=== PATIENT | female | born 1960 | race Caucasian/White ===

== ENCOUNTER 2024-04-01 16:18 | Emergency (ER) | payer OTHER, SELFPAY ==
--- NOTE | 2024-04-01 | ECG_ITS ---
Test Reason : CP Blood Pressure : / mmHG Vent. Rate : 073 BPM Atrial Rate : 073 BPM P-R Int : 146 ms QRS Dur : 098 ms QT Int : 408 ms P-R-T Axes : 058 -17 069 degrees QTc Int : 449 ms Normal sinus rhythm Minimal voltage criteria for LVH, may be normal variant ( [place] product ) Borderline ECG No previous ECGs available Referred By: Generic ED Physician Electronically Signed By:DEBORAH FIGUEROA
[2024-04-01 16:22] VITALS: BP 183/69; PULSE 79; RESP 16; TEMP 36.4; O2SAT 97; BMI 41.3
--- NOTE | 2024-04-01 16:44 | ED_ITS ---
HPI - General Adult General Chief complaint: General Medical Stated complaint: high blood pressure/visiting and forgot medication Time Seen by Provider: 04/01/24 22:04 Source: patient, family, RN notes reviewed and parts interpreter Mode of arrival: ambulatory Limitations: language barrier History of Present Illness ED Provider: Ziyad HPI narrative: 64F presents with chief complaint of I forgot my medication . Patient states she is visiting from [facility] and forgot her blood pressure medication. She states she takes either 25mg or 50mg of metoprolol once daily. She has not taken her medication since Wednesday. Denies headache, dizziness, vision changes, chest pain, dyspnea. Related Data Previous Rx's ?Medication ?Instructions ?Recorded metoprolol succinate 25 mg 25 mg PO DAILY #28 tabs 04/01/24 tablet,extended release 24 hr Allergies Allergy/AdvReac Type Severity Reaction Status Date / Time No Known Allergies Allergy Verified 04/01/24 16:24 Review of Systems 2 Constitutional: Constitutional: Denies headache(s) Eyes: Eyes: Denies change in vision, Denies loss of vision and Denies other visual disturbances ENT: Denies dizziness and Denies headache(s) Cardiovascular: Cardiovascular: Denies chest pain and Denies dyspnea Respiratory: Respiratory: Denies dyspnea Neurologic: Denies dizziness, Denies headache(s), Denies loss of vision and Denies Other visual disturbances PMF Social History Social History Smoked in Last 30 Days: No Use of substances other than those prescribed or required for medical reasons: No Advance Directives: No Advance Directives Information Provided: No Patient : No Physical Exam ED Vital Signs: Vital Signs - 24 hr 04/01/24 16:22 04/01/24 18:19 04/01/24 19:19 Temperature 97.5 F 97.8 F 98.4 F Pulse Rate 79 74 72 Respiratory Rate 16 15 16 Blood Pressure 183/69 H 202/77 H 162/73 H Pulse Oximetry 97 97 97 Oxygen Delivery Method Room Air Room Air Room Air 04/01/24 21:38 04/01/24 22:48 04/01/24 22:51 Temperature 98.1 F 97.9 F Pulse Rate 75 74 Respiratory Rate 16 18 Blood Pressure 161/62 H 163/68 H 163/68 H Pulse Oximetry 98 98 Oxygen Delivery Method Room Air BMI result Body Mass Index 41.3 Const General: healthy appearing, comfortable, no acute distress, alert and awake Nutritional Appearance: well nourished Orientation/consciousness: patient oriented x3 HENMT Head: Yes normocephalic and Yes atraumatic Eyes Eyelids: Yes eyelids normal Conjunctivae: conjunctivae normal Sclerae: sclerae normal Corneas: corneas normal Resp Effort & Inspection: normal respiratory effort, able to speak in complete sentences, no audible wheezes and not labored Cardio Rate: regular rate Rhythm: regular rhythm Neuro General: patient oriented x3 Cognition (Neuro): normal cognition Extrem Other: Moving all extremities well without any obvious deformities Course Course Course Narrative: RME performed by Angeles Turpin PA-C. Patient is a 64 year old assigned female at presenting to the emergency department with possible high blood pressure. Patient states she is visiting the area and forgot her blood pressure medication. Patient states that she has no idea what medication she takes or the dose. Detailed physical exam and review of systems are deferred to the primary school teacher. Patient placed back in the waiting room pending room availability. Medications Administered Discontinued Medications Generic Name Dose Route Start Last Admin Trade Name Freq PRN Reason Stop Dose Admin Metoprolol Tartrate 50 mg 04/01/24 22:34 04/01/24 22:48 Metoprolol Tartrate 50 Mg Tablet PO 04/01/24 22:35 50 mg ONCE ONE Administration Protocol Medical Decision Making Medical Decision Making [facility] Narrative: 64-year-old female with past medical history significant for hypertension presents for evaluation of hypertension. Her blood pressure was as high as 202/77. This improved without intervention. She is asymptomatic currently. Labs show no concerning abnormalities. We will give a dose of the metoprolol and prescribed a short course for her until she may follow up with her outpatient providers Differential Diagnosis Differential Diagnoses: The differential diagnosis associated with the presentation includes Hypertension Medication noncompliance Hypertensive urgency Asymptomatic hypertension Lab Data [facility] Lab Attestation statement: I reviewed the patient's lab results. No leukocytosis. The patient has a mild normocytic anemia. Normal platelet count. No left shift electrolytes within normal limits with the exception of a slightly elevated calcium to 11.5.. Random glucose is 126. No evidence of DKA. The patient's 04/01/24 17:03 04/01/24 17:03 Labs: Lab Results 04/01/24 Range/Units 17:03 WBC 8.0 (4.8-10.8) X10*3/uL RBC 3.94 L (4.20-5.50) X10*6/uL Hgb 11.1 L (12.0-16.0) g/dl Hct 34.5 L (37.0-47.0) % MCV 87.6 (80.0-98.0) fL MCH 28.2 (27.0-33.0) pg MCHC 32.2 (31.0-35.0) g/dl RDW 14.2 (11.0-16.0) % Plt Count 356 (160-400) X10*3/uL MPV 9.1 L (9.4-12.3) fL Immature Gran % (Auto) 0.3 (0.0-0.4) % Neut % (Auto) 41.3 L (45-73) % Lymph % (Auto) 45.2 H (20-40) % [place] % (Auto) 9.3 (2-11) % Eos % (Auto) 3.3 (0-4) % Baso % (Auto) 0.6 (0-2) % Lymph # (Auto) 3.6 (1.2-4.9) X10*3/uL [place] # (Auto) 0.7 (0.1-1.2) X10*3/uL Eos # (Auto) 0.3 (0.0-0.4) X10*3/uL Baso # (Auto) 0.1 (0.0-0.2) X10*3/uL Abs Immat Gran (auto) 0.02 (0.00-0.03) X10*3/uL Absolute Neuts (auto) 3.3 (2.0-8.3) x10*3/uL Absolute Nucleated RBC 0.000 (0.0-0.012) X10*3/uL Nucleated RBC % (auto) 0.0 (0.0-0.2) /100WBC Sodium 140 (135-145) mmol/L Potassium 3.9 (3.3-5.1) mmol/L Chloride 108 (96-108) mmol/L Carbon Dioxide 25 (22-29) mmol/L Anion Gap 11 L (12-20) BUN 16 (9-16) mg/dL Creatinine 0.72 (0.5-1.4) mg/dL Estim Creat Clear Calc 59.2 Estimated GFR > 60 Random Glucose 126 H (60-115) mg/dL Calcium 11.5 H (8.4-10.2) mg/dL Total Bilirubin 0.1 (0.0-1.0) mg/dL AST 15 (5-31) U/L ALT 7 (0-31) U/L Alkaline Phosphatase 137 H (39-117) U/L Total Protein 7.4 (6.5-8.0) g/dL Albumin 4.3 (3.5-5.0) g/dL Discharge Plan Discharge Clinical Impression: Hypertension Patient Disposition: Home, Self-Care Instructions: Chronic Hypertension (ED) Additional Instructions: Your workup in the ER today was reassuring. It is important to take your medication as prescribed. I prescribed metoprolol 25 mg I would call your doctor's office tomorrow for your pharmacy where you got it filled and if you are supposed take 50mg, then take 2 pills at a time Prescriptions: New metoprolol succinate 25 mg tablet extended release 24 hr 25 mg PO DAILY Qty: 28 0RF Interventions: ED Discharge Assessment Last Done: 04/01/24 22:51 Discharge Date/Time: 04/01/24 22:52 Print Language: Sammar[place]
[2024-04-01 17:06] LABS: MANUAL DIFF FLAG NO
[2024-04-01 17:11] LABS: Basophils Absolute Auto 0.1 X10*3/uL (0.0-0.2); Basophils Percent Auto 0.6 % (0-2); Eosinophils Absolute Auto 0.3 X10*3/uL (0.0-0.4); Eosinophils Percent Auto 3.3 % (0-4); Hematocrit 34.5 % (37.0-47.0); Hemoglobin 11.1 g/dl (12.0-16.0); Imm Gran Abs Auto 0.02 X10*3/uL (0.00-0.03); Imm Gran Pct Auto 0.3 % (0.0-0.4); Lymphocytes Absolute Auto 3.6 X10*3/uL (1.2-4.9); Lymphocytes Percent Auto 45.2 % (20-40); Mean Corpuscular HGB Conc 32.2 g/dl (31.0-35.0); Mean Corpuscular Hemoglobin 28.2 pg (27.0-33.0); Mean Corpuscular Volume 87.6 fL (80.0-98.0); Mean Platelet Volume 9.1 fL (9.4-12.3); Monocytes Absolute Auto 0.7 X10*3/uL (0.1-1.2); Monocytes Percent Auto 9.3 % (2-11); Neutrophils Absolute Auto 3.3 x10*3/uL (2.0-8.3); Neutrophils Percent Auto 41.3 % (45-73); Platelet Count 356 X10*3/uL (160-400); Red Blood Count 3.94 X10*6/uL (4.20-5.50); Red Cell Distribution Width 14.2 % (11.0-16.0)
[2024-04-01 17:21] LABS: Alanine Aminotransferase 7 U/L (0-31); Albumin Level 4.3 g/dL (3.5-5.0); Alkaline Phosphatase 137 U/L (39-117); Anion Gap 11 (12-20); Aspartate Amino Transferase 15 U/L (5-31); Bilirubin Total 0.1 mg/dL (0.0-1.0); Blood Urea Nitrogen 16 mg/dL (9-16); Calcium 11.5 mg/dL (8.4-10.2); Carbon Dioxide 25 mmol/L (22-29); Chloride 108 mmol/L (96-108); Creatinine Clr Calc Pharmacy 59.2; Estimated Glomerular Filt Rate > 60; Glucose Random 126 mg/dL (60-115); Potassium 3.9 mmol/L (3.3-5.1); Sodium 140 mmol/L (135-145); Total Protein 7.4 g/dL (6.5-8.0)
[2024-04-01 18:19] VITALS: BP 202/77; PULSE 74; RESP 15; TEMP 36.6; O2SAT 97
[2024-04-01 19:19] VITALS: BP 162/73; PULSE 72; RESP 16; TEMP 36.9; O2SAT 97
[2024-04-01 21:38] VITALS: BP 161/62; PULSE 75; RESP 16; TEMP 36.7; O2SAT 98
[2024-04-01 22:48] VITALS: BP 163/68
[2024-04-01] MEDS: Metoprolol Tartrate 50 MG TABLET PO (22:48)
[2024-04-01 22:51] VITALS: BP 163/68; PULSE 74; RESP 18; TEMP 36.6; O2SAT 98
== END 2024-04-01 22:52 | disposition home or self-care (01) ==
PROVIDERS: Physician Assistant Medical; Emergency Provider Emergency Medicine
DX: I10 Essential (primary) hypertension (principal)
CPT/HCPCS: 36415; 80053; 85025; 93005; 99283; 99284